=== PATIENT | female | born 1995 | race Caucasian/White ===

== ENCOUNTER 2022-01-16 10:16 | Emergency (ER) | payer OTHER, SELFPAY ==
[2022-01-16 10:33] VITALS: BP 164/89; PULSE 84; RESP 16; TEMP 36.7; O2SAT 100
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
== END 2022-01-16 12:30 | disposition home or self-care (01) ==
PROVIDERS: Emergency Provider Physician Assistant
DX: M79.605 Pain in left leg (principal); M79.604 Pain in right leg; M54.9 Dorsalgia, unspecified; V43.62XA Car passenger injured in collision with other type car in traffic accident, initial encounter
CPT/HCPCS: 99282